=== PATIENT | female | born 1970 | race Two or more races ===

== ENCOUNTER 2019-02-01 19:03 | Emergency (ER) | payer SELFPAY ==
[~2019-02-01] VITALS: Ht 144.8 cm; Wt 49.9 kg
[2019-02-01 19:27] VITALS: BP 123/84
[2019-02-01] MEDS ORDERED: BACLOFEN 10 MG TAB PO ONE (21:30)
[2019-02-01] MEDS ORDERED: ACETAMINOPHEN/CODEINE#3 (300/30mg) TAB PO ONE (21:30)
[2019-02-01] MEDS ORDERED: TRIAMCINOLONE 40MG/ML 1ML VIAL IM ONE (21:30)
== END 2019-02-01 22:18 | disposition home or self-care (01) ==
LOC: ER 19:08
DX: S43.421A Sprain of right rotator cuff capsule, initial encounter (principal); S40.011A Contusion of right shoulder, initial encounter; W19.XXXA Unspecified fall, initial encounter; Y93.89 Activity, other specified; Y99.8 Other external cause status; Y92.89 Other specified places as the place of occurrence of the external cause
CPT/HCPCS: 73030; 73060; 73562; 96372; 99283; J3301